=== PATIENT | male | born 1995 | race Caucasian/White ===

== ENCOUNTER 2016-04-26 08:50 | Day surgery (SDC) | payer BC ==
--- NOTE | 2016-04-25 10:41 | HP ---
DATE OF ADMISSION: 04/26/2016. This patient is scheduled for Same Day Surgery admission tomorrow, April 26, [address] Pringle. DATE OF PREOPERATIVE HISTORY AND PHYSICAL EXAMINATION: Monday, April 25, 2016. ATTENDING SURGEON: Dr. Brian Pringle (dictated by Marge Gonzalez NP). CHIEF COMPLAINT: Right inguinal hernia. 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 He states that he noted a bulge in his right groin which has been complete asymptomatic for the past year and has not changed in size. He is able to exercise, lift weights and play vigorous tennis without any complaint. He reports that he may have had some discomfort in the right groin from an enlarged lymph node in December 2015 which has resolved, but he did see his primary care provider recently, Kierra Sagastume NP, who diagnosed a right inguinal hernia and was referred [facility] for further care. He denies any signs or symptoms to suggest incarceration of the right inguinal hernia. He denies any dysuria or testicular discomfort or swelling. Dr. Pringle examined the patient and notes a reducible nontender right inguinal hernia. Dr. Pringle has recommended laparoscopic right inguinal hernia repair with mesh as a same day surgery procedure and discussed the nature of the procedure, the relevant risks, benefits and alternatives, and today I reviewed the typical postoperative care and recovery. The patient has had a chance to ask questions and stated that he understands the information and is satisfied with the answers given to his questions. He will sign surgical consent on the day of surgery. PAST MEDICAL HISTORY: Generally healthy. No acute or chronic conditions. PAST SURGICAL HISTORY: He has not had any previous surgeries. MEDICATIONS: None currently. ALLERGIES: No known drug allergies. No food or latex allergies. FAMILY HISTORY: Noncontributory. No known anesthesia complications, bleeding tendencies, or clotting disorders. 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 He has never been a smoker. He denies the use of alcohol or other substances and exercises regularly. REVIEW OF SYSTEMS: He denies any recent illnesses or constitutional symptoms. He denies cardiovascular symptoms. He denies any respiratory symptoms. He denies any gastrointestinal symptoms. He denies urinary symptoms. He denies musculoskeletal symptoms. Denies neurologic symptoms. He denies any bleeding tendencies and has never received a blood transfusion. He denies any previous anesthesia complications with local anesthesia and has never had IV sedation or general anesthesia. He denies any history of deep vein thrombosis or pulmonary embolism. PHYSICAL EXAMINATION GENERAL: The patient is a 20-year-old male, well-developed, well-nourished, in no acute distress. VITAL SIGNS: Height 67 inches, weight 147 pounds, body mass index 23. Blood pressure 110/70, pulse 60 and regular, respiratory rate 16, temperature 98.4 tympanic. SKIN: Warm, dry, intact. HEENT: Benign. NECK: Supple. No cervical lymphadenopathy. BACK: No CVA tenderness. LUNGS: Breath sounds bilaterally clear and equal. HEART: Regular rate and rhythm. No murmurs, rubs or gallops appreciated. ABDOMEN: Flat, soft, nontender throughout. Palpation by Dr. Pringle revealed no left inguinal hernia, but there is a reducible, nontender right inguinal hernia. EXTREMITIES: Warm with full range of motion and no edema or skin ulceration. GENITALIA: Testes normal to palpation. No masses. No palpable regional lymphadenopathy. RECTAL: Deferred. NEUROLOGIC: Alert and oriented times three, steady gait. IMPRESSION: Right inguinal hernia. PLAN: Same Day Surgery admission to Dr. Pringle service for laparoscopic right inguinal hernia repair with mesh tomorrow, April 26, 2016. LISET GONZALEZ NP CC: Kierra Sagastume NP* [id number]/[facility] #: [id number] [facility] CENTERTrina
[~2016-04-26 08:50] MED LIST: Buffered Lidocaine 1% SYR 3ML* 3 ML/SYR SYRINGE INTRADERM ONE; Famotidine IV* 10 MG/ML 2 ML (20 mg) IV ONE; Morphine INJ* 2 MG/ML 1 ML CARPUJECT IV PRN; PROCHLORPERAZINE INJ 5 MG/ML 2 ML VIAL IV PRN; fentaNYL* 50 MCG/ML 2 ML VIAL (100 MCG VIAL) IV PRN; oxyCODONE/Acetamin 5/325 MG* TAB PO PRN
[2016-04-26] MEDS ORDERED: Midazolam* 1 MG/ML 5 ML VIAL (5 MG) ONE (09:02)
[2016-04-26] MEDS ORDERED: Morphine INJ* 10 MG/ML 1 ML CARPUJECT ONE (09:02)
[2016-04-26] MEDS ORDERED: KETAMINE HCL* 50 MG/ML 10 ML VIAL ONE (09:02)
[2016-04-26] MEDS ORDERED: fentaNYL* 50 MCG/ML 2 ML VIAL (100 MCG VIAL) ONE (09:02)
[2016-04-26] MEDS ORDERED: Atracurium* 10 MG/ML 10 ML VIAL ONE (09:02)
[2016-04-26] MEDS ORDERED: Famotidine IV* 10 MG/ML 2 ML (20 mg) ONE (09:12)
[2016-04-26] MEDS ORDERED: ceFAZolin 2 GM PREMIX (*) 2 GM/50 ML BAG IVPB ONE (09:12)
[2016-04-26] MEDS ORDERED: Bupivacaine 0.5% W/EPI SDV* 30 ML VIAL ONE (10:06)
[2016-04-26] MEDS ORDERED: Propofol* 10 MG/ML 20 ML BTL IV PUSH ONE (11:15)
[2016-04-26] MEDS ORDERED: Glycopyrrolate IV* 0.2 MG/ML 1 ML VIAL ONE (11:15)
[2016-04-26] MEDS ORDERED: Ondansetron INJ* 2 MG/ML VIAL ONE (11:15)
[2016-04-26] MEDS ORDERED: Dexamethasone IV* 4 MG/ML 1 ML (4 MG) ONE (11:15)
[2016-04-26] MEDS ORDERED: Neostigmine Methylsulfate* 2 MG/2 ML SYRINGE ONE (11:15)
[2016-04-26] MEDS ORDERED: Lidocaine 2% PF * 5 ML VIAL ONE (11:15)
[2016-04-26] MEDS ORDERED: Ketorolac INJ* 30 MG/ML 1 ML VIAL ONE (11:21)
[2016-04-26] MEDS ORDERED: HYDROcodone/ACETAMIN 5-325 MG* 1 TAB PO PRN ×2 (11:37)
[2016-04-26] MEDS ORDERED: oxyCODONE/Acetamin 5/325 MG* TAB ONE (12:44)
[2016-04-26 14:00] VITALS: BP 146/68
--- NOTE | 2016-04-27 23:27 | OP ---
DATE OF OPERATION: 04/26/15 [facility] [place] [facility] DATE OF : 89 SURGEON: Brian Pringle MD SIGN HANGER: Dr. Gomez. ANESTHESIOLOGIST: Dr. Perez. ANESTHESIA: General endotracheal. PRE-OP DIAGNOSIS: Right inguinal hernia. POST-OP DIAGNOSIS: Right inguinal hernia. OPERATIVE PROCEDURE: Laparoscopic preperitoneal hernia repair with mesh. ESTIMATED BLOOD LOSS: Minimal. IV FLUIDS: Crystalloid. SPECIMENS: None. DRAINS: None. COMPLICATIONS: None. COUNTS: Instrument, needle, and sponge counts were correct. DESCRIPTION OF PROCEDURE: The patient was brought to the operating room and placed on the table supine. Sequential compression devices were placed on both lower extremities. General anesthesia was administered. A Hubbard catheter was placed. He was administered intravenous antibiotics. He was prepped and draped in the usual sterile fashion and a time-out was performed. Local anesthetic was infiltrated into the skin and soft tissue prior to making each incision. An infraumbilical curvilinear incision was created and then the fascia to the right of the midline was identified and incised transversely. The underlying rectus muscle fibers were retracted laterally and a preperitoneal balloon dissection was positioned down the pubic symphysis. This was insufflated under direct visualization and then removed and replaced with a 12 mm blunt port. A two 5 mm trocars were placed along the midline of the abdomen under direct visualization. Blunt dissection proceeded from the midline laterally identifying the pubic symphysis, Orlando's ligament, the inferior epigastric vessels and dissecting out to the anterior superior iliac spine. There was no evidence of direct inguinal hernia. There was an enlarged indirect inguinal hernia sac. This was not able to be fully reduced and therefore after dissecting this, the spermatic cord structures freed from it and the sac was clipped proximally and then divided leaving the distal end open. Closure of the sac was assured. The repair was then performed with the Bard 3D Max mesh using a medium size patch, placed within the preperitoneal space and it was positioned to cover the direct and indirect femoral spaces. The CapSure tacker was used to secure the mesh to the pubic tubercle and Orlando's ligament. The mesh was inspected as desufflation of the preperitoneal space was performed assuring that the hernia sac was well positioned and would not slip beneath the mesh. After removing all the carbon dioxide, the ports were removed and the wounds were closed with 0 Polysorb to approximate the fascia of the umbilical fascia. Skin incisions were closed with 4-0 Monocryl in a subcuticular fashion and Steri-Strips were applied. The patient tolerated the procedure well, was extubated and transferred to recovery room in stable condition. CC: Kierra Sagastume NP * [id number]/[facility] #: [id number] MTDD
== END 2016-04-26 14:07 | disposition home or self-care (01) ==
LOC: OR 08:50
PROVIDERS: ATTEND Surgery
DX: K40.90 Unilateral inguinal hernia, without obstruction or gangrene, not specified as recurrent (principal)
CPT/HCPCS: A9270-GY; C1776; C1781; J0690; J1100; J1885; J2250; J2270; J2405; J2704; J3010